=== PATIENT | male | born 2000 | race Caucasian/White ===

== ENCOUNTER 2020-09-14 07:00 | Outpatient (CLI) | payer MEDICAID ==
--- NOTE | 2020-09-14 17:27 | XRAY Report ---
PROCEDURE: Wrist 4 View RT INDICATIONS: RIGHT WRIST PAIN TECHNIQUE: 4 views of the wrist were acquired. COMPARISON: None. FINDINGS: Bones: No fractures or dislocations. No suspicious bony lesions. Scaphoid view: No trauma Soft tissues: No suspicious soft tissue calcifications. IMPRESSION: No trauma found. Reviewed by: Tyrese Khoury MD on 09/14/2020 5:25 PM PDT Approved by: Tyrese Khoury MD on 09/14/2020 5:25 PM PDT Station ID: [id number]
== END 2020-09-14 23:59 | disposition home or self-care (01) ==
LOC: DI.N 07:00
PROVIDERS: ATTEND Family Medicine
DX: M25.531 Pain in right wrist (principal)